=== PATIENT | female | born 1935 | race Caucasian/White ===

== ENCOUNTER 2016-09-13 13:56 | Emergency (ER) | payer OTHER, BC ==
[~2016-09-13] VITALS: Ht 162.6 cm; Wt 68.5 kg
--- NOTE | ~2016-09-13 | EKG ---
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: MZOOK : 1935 Requested By: Elizabeth Whitley Order Number: [id number] MD: Vj Mullins Measurements Intervals [place] Rate: 88 P: 49 [place]: 159 QRS: -1 QRSD: 82 T: 34 QT: 346 QTc: 419 Interpretive Statements Sinus rhythm Atrial premature complex Abnormal R-wave progression, early transition No previous ECG available for comparison Electronically Signed On 09-14-2016 8:30:49 CDT by Vj Mullins [email or web address] <ELECTRONICALLY SIGNED> By: Vj Mullins MD, [facility] 09/14/16 0830 1426 1426 Vj Mullins MD, FACC /EPI
[~2016-09-13 13:56] MED LIST: ACTONEL; EVISTA; FERRO-TIME325 MG PO; IRON; LEXAPRO PO; LIPITOR PO; NORCO 5-325 TA1 EACH PO; PROTONIX40 M2 PO; VITAMIN D400 UNI1; ZOLOFT
[2016-09-13 14:54] LABS: ABSOLUTE NEUTROPHILS 4.8 thou/uL (1.4-8.2); BASOPHILS 0.5 % (0.0-2.0); EOSINOPHILS 4.7 % (0.0-3.0); HEMATOCRIT 40.9 % (37.0-47.0); HEMOGLOBIN 13.8 gm/dL (12.0-15.0); LYMPHOCYTES 17.8 % (24.0-44.0); MCH 29.8 pg (26.0-34.0); MCHC 33.6 g/dL (28.0-37.0); MCV 88.6 fL (80.0-100.0); MONOCYTES 8.7 % (1.0-8.0); PLATELET COUNT 203 thou/uL (150-400); POLYS 68.3 % (36.0-66.0); RBC 4.62 mil/uL (4.20-5.00); RDW 13.2 % (10.5-14.5)
[2016-09-13 14:55] LABS: MANUAL DIFF NO
[2016-09-13 15:01] LABS: CALCIUM 8.8 mg/dL (8.5-10.1); CREATININE 1.3 mg/dL (0.6-1.0); POTASSIUM 3.8 mmol/L (3.5-5.1)
[2016-09-13] MEDS ORDERED: ALBUTEROL2.5 MG/31 INH (16:39)
[2016-09-13] MEDS ORDERED: VENTOLIN HFA 1818 GM INH (16:39)
[2016-09-13 16:57] VITALS: BP 100/73
== END 2016-09-13 16:57 | disposition home or self-care (01) ==
LOC: ER 13:56
PROVIDERS: Emergency Medicine
DX: J44.1 Chronic obstructive pulmonary disease with (acute) exacerbation (principal); M81.0 Age-related osteoporosis without current pathological fracture; Z90.89 Acquired absence of other organs; Z86.2 Personal history of diseases of the blood and blood-forming organs and certain disorders involving the immune mechanism; Z87.891 Personal history of nicotine dependence

== ENCOUNTER → 2018-08-10 | Outpatient (CLI) | payer OTHER, BC ==
[~2018-08-10] MED LIST changes: +ALBUTEROL2.5 MG/31 INH; +VENTOLIN HFA 1818 GM INH
== END ==
LOC: RAD 10:56
DX: J44.9 Chronic obstructive pulmonary disease, unspecified (principal); K44.9 Diaphragmatic hernia without obstruction or gangrene

== ENCOUNTER 2019-12-18 11:25 | Emergency (ER) | payer OTHER, BC ==
[~2019-12-18] VITALS: Ht 162.6 cm; Wt 68.0 kg
[2019-12-18] MEDS ORDERED: VITAMIN B-121000 MC2 PO (11:50)
[2019-12-18 13:44] VITALS: BP 137/91
== END 2019-12-18 13:45 | disposition home or self-care (01) ==
LOC: ER 11:25
DX: K59.00 Constipation, unspecified (principal); J44.9 Chronic obstructive pulmonary disease, unspecified; Z87.891 Personal history of nicotine dependence; Z79.899 Other long term (current) drug therapy

== ENCOUNTER → 2020-01-01 | Outpatient (CLI) | payer OTHER, BC ==
[~2020-01-01] MED LIST changes: +VITAMIN B-121000 MC2 PO
== END ==
LOC: CAT 10:05
PROVIDERS: ATTEND Internal Medicine
DX: K57.30 Diverticulosis of large intestine without perforation or abscess without bleeding (principal); K44.9 Diaphragmatic hernia without obstruction or gangrene; M85.88 Other specified disorders of bone density and structure, other site; J98.4 Other disorders of lung; M47.816 Spondylosis without myelopathy or radiculopathy, lumbar region

== ENCOUNTER → 2020-01-03 | Outpatient (CLI) | payer OTHER, BC | LOC: RAD 11:53 | PROVIDERS: ATTEND Internal Medicine | DX: M19.012 Primary osteoarthritis, left shoulder (principal); J98.11 Atelectasis; Z87.81 Personal history of (healed) traumatic fracture ==

== ENCOUNTER 2020-03-18 14:32 | Emergency (ER) | payer OTHER, BC ==
[~2020-03-18] VITALS: Ht 160 cm; Wt 68.0 kg
[2020-03-18 15:20] LABS: ABSOLUTE NEUTROPHILS 13.5 thou/uL (1.4-8.2); BASOPHILS 0.2 % (0.0-2.0); EOSINOPHILS 0.1 % (0.0-3.0); HEMATOCRIT 38.8 % (37.0-47.0); HEMOGLOBIN 13.3 gm/dL (12.0-15.0); LYMPHOCYTES 6.6 % (24.0-44.0); MCH 30.4 pg (26.0-34.0); MCHC 34.3 g/dL (28.0-37.0); MCV 88.6 fL (80.0-100.0); MONOCYTES 4.3 % (1.0-8.0); PLATELET COUNT 275 thou/uL (150-400); POLYS 88.8 % (36.0-66.0); RBC 4.38 mil/uL (4.20-5.00); RDW 13.9 % (10.5-14.5); WBC 15.2 thou/uL (4.0-11.0)
[2020-03-18 15:30] LABS: ANION GAP 10 mmol/L (7-16); BUN 21 mg/dL (7-18); CALCIUM 9.7 mg/dL (8.5-10.1); CHLORIDE 99 mmol/L (98-107); CO2 23 mmol/L (21-32); CREATININE 1.3 mg/dL (0.6-1.0); GLUCOSE 127 mg/dL (74-106); POTASSIUM 3.8 mmol/L (3.5-5.1); SODIUM 132 mmol/L (136-145)
[2020-03-18 15:41] LABS: ALBUMIN 3.2 g/dL (3.4-5.0); DIRECT BILIRUBIN 0.2 mg/dL (<0.1-0.2); SGOT 14 U/L (15-37); SGPT 9 U/L (30-65); TOTAL BILIRUBIN 0.9 mg/dL (0.2-1.0); TOTAL PROTEIN 7.5 g/dL (6.4-8.2); TROPONIN-I <0.06 ng/mL (<0.06)
[2020-03-18 17:59] LABS: URINE BILIRUBIN NEGATIVE (Negative); URINE BLOOD 1+ (Negative); URINE CLARITY CLEAR; URINE COLOR YELLOW; URINE GLUCOSE-RANDOM* NEGATIVE (Negative); URINE KETONES NEGATIVE (Negative); URINE LEUKOCYTES-REFLEX NEGATIVE (Negative); URINE NITRITE-REFLEX NEGATIVE (Negative); URINE PROTEIN (DIPSTICK) TRACE (Negative); URINE SPECIFIC GRAVITY 1.025 (1.005-1.035)
[2020-03-18 18:18] LABS: BACTERIA-REFLEX 1-9 Few /HPF (None Seen); CASTS None Seen /LPF (None Seen); CRYSTALS None Seen /LPF (None Seen); SQUAMOUS 0-3 Few /LPF (0-3); URINE RBC 0-2 Rare /HPF (0-2); URINE WBC-REFLEX 0-5 Rare /HPF (0-5)
[2020-03-18] MEDS ORDERED: ALBUTEROL2.5 MG/3 M INH (19:14)
[2020-03-18] MEDS ORDERED: PREDNISONE 20 M20 MG PO (19:14)
[2020-03-18 19:16] VITALS: BP 108/60
--- NOTE | 2020-03-19 08:53 | EKG ---
[facility] [place] [address] ELECTROCARDIOGRAM REPORT Name: TOM PERSAUD Room #: DEP [facility]#: [id number] Admission: 03/18/20 Attend Phys: Discharge: 03/18/20 Date of : 39 Report #: [id number] THIS REPORT FOR: cc: Gustavo Holly MD, Christopher B. MD Lundgren,Vj Quintanilla MD [facility] ~ THIS REPORT FOR: //name// [facility] ED Test Date: 2020-03-18 Test Time: 15:53:38 Pat Name: TOM PERSAUD Department: Room: Gender: F Chief I Dispatcher: no : 1935 Requested By: Elizabeth Whitley Order Number: [id number] MD: Vj Mullins Measurements Intervals [place] Rate: 103 P: 35 [place]: 136 QRS: -11 QRSD: 76 T: 30 QT: 326 QTc: 427 Interpretive Statements Sinus tachycardia Abnormal R-wave progression, early transition Baseline wander in lead(s) I,II,aVR Compared to ECG 09/13/2016 14:26:44 No significant change was found Electronically Signed On 03-19-2020 8:53:12 CDT by Vj Mullins [email or web address] <ELECTRONICALLY SIGNED> By: Vj Mullins MD, FACC 03/19/20 0853 1553 1553 Vj Mullins MD, FAC /EPI
== END 2020-03-18 19:23 | disposition home or self-care (01) ==
LOC: ER 14:32
PROVIDERS: Emergency Medicine
DX: J44.1 Chronic obstructive pulmonary disease with (acute) exacerbation (principal); Z90.89 Acquired absence of other organs; Z79.899 Other long term (current) drug therapy; Z87.891 Personal history of nicotine dependence; Z20.828 Contact with and (suspected) exposure to other viral communicable diseases

== ENCOUNTER → 2021-04-14 | Outpatient (CLI) | payer OTHER, BC ==
[~2021-04-14] MED LIST changes: +ALBUTEROL2.5 MG/3 M INH; +PREDNISONE 20 M20 MG PO
== END ==
LOC: RAD 15:03
PROVIDERS: ATTEND Internal Medicine
DX: Z12.31 Encounter for screening mammogram for malignant neoplasm of breast (principal); N64.89 Other specified disorders of breast